=== PATIENT | female | born 1975 | race Caucasian/White ===

== ENCOUNTER 2020-02-22 08:26 | Outpatient (CLI) | payer OTHER ==
--- NOTE | 2020-02-22 09:02 | RAD ---
EXAM: XR Lumbar Spine 2 Or 3 View PROVIDED CLINICAL HISTORY: Sacroiliitis. COMPARISON: None FINDINGS: There are 5 nonrib-bearing lumbar-type vertebral bodies. There is mild right convex curvature of thor acolumbar spine. Mild narrowing is present at the L5-S1 level. Remaining intervertebral disc spaces as well as vertebral body heights are within normal limits. No fracture or subluxation is seen involv ing the lumbar spine. IMPRESSION: Mild degenerative changes lumbosacral junction. No fracture or subluxation is seen.
== END 2020-02-22 08:27 | disposition home or self-care (01) ==
LOC: BICRAD 08:26
PROVIDERS: ATTEND Family Medicine
DX: M46.1 Sacroiliitis, not elsewhere classified (principal); M47.817 Spondylosis without myelopathy or radiculopathy, lumbosacral region
CPT/HCPCS: 72100

== ENCOUNTER 2023-09-06 13:03 | Outpatient (CLI) | payer OTHER | END 2023-09-06 13:04 | disposition home or self-care (01) | LOC: SCSRAD 13:03 | PROVIDERS: ATTEND Family Medicine | DX: R05.9 Cough, unspecified (principal) | CPT/HCPCS: 36415; 71046; 80053; 85025 ==

== ENCOUNTER 2023-12-17 14:49 | Outpatient (CLI) | payer BC ==
[2023-12-17 16:13] LABS: BHCG - Serum Negative (NEGATIVE); Pregs Control Background? CLEAR/WHITE (CLR/WHITE); Pregs Control Bar Appear? YES (CONTROL BAR)
== END 2023-12-17 14:50 | disposition home or self-care (01) ==
LOC: LABBT 14:49
PROVIDERS: ATTEND Surgery
DX: K80.44 Calculus of bile duct with chronic cholecystitis without obstruction (principal)
CPT/HCPCS: 84703

== ENCOUNTER 2023-12-20 08:11 | Day surgery (SDC) | payer BC ==
[2023-12-17 15:16] VITALS: BMI 37.2
[2023-12-20] MEDS ORDERED: Famotidine/PF 20 mg/2ml Vial ONE (10:07)
[2023-12-20] MEDS ORDERED: Bupivacaine 0.25% HCL 30 ML VIAL ONE (10:09)
[2023-12-20] MEDS ORDERED: EPINEPHrine 1 MG/ML VIAL ONE (10:09)
[2023-12-20] MEDS ORDERED: Indocyanine Green 25 MG/10 ML VIAL ONE (10:09)
[2023-12-20] MEDS ORDERED: fentaNYL PF 100 MCG/2 ML SYRINGE ONE ×2 (10:12→12:25)
[2023-12-20] MEDS ORDERED: PROPOFOL 20 ML ONE (10:12)
[2023-12-20] MEDS ORDERED: Rocuronium Bromide 10 MG/ML (10ML VIAL) ONE (10:13)
[2023-12-20] MEDS ORDERED: Lidocaine 2% PF 5 ML VIAL ONE (10:13)
[2023-12-20] MEDS ORDERED: CEFAZOLIN 2 GM VIAL ONE (10:24)
[2023-12-20] MEDS ORDERED: Metoclopramide HCl 10 MG (2 mL) VIAL ONE (10:26)
[2023-12-20] MEDS ORDERED: Ketorolac Tromethamine 30 MG (1 mL) VIAL ONE (10:26)
[2023-12-20] MEDS ORDERED: Dexamethasone 4 mg/ml Vial ONE (10:26)
[2023-12-20] MEDS ORDERED: Ondansetron PF 4 MG/2 ML Vial ONE (10:26)
[2023-12-20] MEDS ORDERED: SUGAMMADEX SODIUM 200 MG/2 ML VIAL ONE (10:27)
[2023-12-20] MEDS ORDERED: fentaNYL 50 mcg/mL 1 mL Vial ONE (12:50)
[2023-12-20] MEDS ORDERED: HYDROcodone/Acetaminophen 5/325 mg Tablet ONE (13:49)
== END 2023-12-20 15:00 | disposition home or self-care (01) ==
LOC: SDC 08:11
PROVIDERS: ATTEND Surgery
PROC: 0FT44ZZ Resection of Gallbladder, Percutaneous Endoscopic Approach (ICD-10-PCS; principal; 2023-12-20)
DX: K80.64 Calculus of gallbladder and bile duct with chronic cholecystitis without obstruction (principal); Z88.8 Allergy status to other drugs, medicaments and biological substances
CPT/HCPCS: 88304; C1889; J0171; J0665; J1100; J1885; J2405; J2704; J2765; J3010; J3490

== ENCOUNTER 2024-02-08 11:36 | Outpatient (CLI) | payer BC | END 2024-02-08 11:37 | disposition home or self-care (01) | LOC: SCSRAD 11:36 | PROVIDERS: ATTEND Family Medicine | DX: M51.370 Other intervertebral disc degeneration, lumbosacral region with discogenic back pain only (principal); M46.1 Sacroiliitis, not elsewhere classified | CPT/HCPCS: 72100 ==